=== PATIENT | male | born 1930 | race African-American/Black ===

== ENCOUNTER 2017-09-03 15:17 | Emergency (ER) | payer OTHER ==
[~2017-09-03] VITALS: Ht 175.3 cm; Wt 75.0 kg
[~2017-09-03 15:17] MED LIST: BENA20TA3 PO; CARV6.2548 PO; CILO100T PO; FERR-63 PO; FLUD0.1T PO; OMEP20TA2 PO; PRAV40TA58 PO; SITA1TAB8 PO; TAMS0.4C31 PO
[2017-09-03 18:46] VITALS: BP 163/94
== END 2017-09-03 18:50 | disposition home or self-care (01) ==
LOC: ER 15:38
DX: S42.301A Unspecified fracture of shaft of humerus, right arm, initial encounter for closed fracture (principal); I10 Essential (primary) hypertension; E11.9 Type 2 diabetes mellitus without complications; Z88.8 Allergy status to other drugs, medicaments and biological substances; W18.30XA Fall on same level, unspecified, initial encounter; Y93.89 Activity, other specified; Y92.89 Other specified places as the place of occurrence of the external cause; Y99.8 Other external cause status
CPT/HCPCS: 73030; 99284